=== PATIENT | male | born 1990 | race Caucasian/White ===

== ENCOUNTER 2018-10-25 16:14 | Emergency (ER) | payer OTHER ==
[2018-10-25 16:23] VITALS: BP 121/69; PULSE 89; RESP 18; TEMP 98.3
--- NOTE | 2018-10-25 16:52 | ED ---
General Adult HPI - General Chief complaint: ENT Stated complaint: sore throat Time Seen by Provider: 10/25/18 16:46 Source: patient, RN notes reviewed Mode of arrival: ambulatory Limitations: no limitations - History of Present Illness Initial comments: 28-year-old male with a past medical history of non-Hodgkin lymphoma presents for to the emergency department for foreign body sensation in right side of throat. Patient states this has been consistent for about 6 months. States it comes and goes. Denies any difficulty swallowing solids or liquids. Denies fevers or chills. Patient also pending of right-sided headaches that his been ongoing for about 6 months as well. Patient has not followed up with primary care. Denies any other neck pain. Denies sore throat.Patient has no other complaints at this time including shortness of breath, chest pain, abdominal pain, nausea or vomiting, headache, or visual changes. - Related Data Home Medications Medication Instructions Recorded Confirmed No Known Home Medications 10/25/18 10/25/18 Allergies Allergy/AdvReac Type Severity Reaction Status Date / Time No Known Allergies Allergy Verified 10/25/18 16:49 Review of Systems ROS Statement: Those systems with pertinent positive or pertinent negative responses have been documented in the HPI. ROS Other: All systems not noted in ROS Statement are negative. Past Medical History Past Medical History: No Reported History History of Any Multi-Drug Resistant Organisms: None Reported Past Surgical History: No Surgical Hx Reported Past Psychological History: No Psychological Hx Reported Smoking Status: Never smoker Past Alcohol Use History: None Reported Past Drug Use History: None Reported General Exam Limitations: no limitations General appearance: alert, in no apparent distress Head exam: Present: atraumatic, normocephalic, normal inspection Eye exam: Present: normal appearance, PERRL, EOMI. Absent: scleral icterus, conjunctival injection, periorbital swelling ENT exam: Present: normal exam, normal oropharynx (Uvula midline, no tonsillar exudates noted bilaterally, no evidence of perionsillar abscess.), mucous membranes moist, TM's normal bilaterally, normal external ear exam Neck exam: Present: normal inspection, full ROM. Absent: tenderness, meningismus, lymphadenopathy Respiratory exam: Present: normal lung sounds bilaterally. Absent: respiratory distress, wheezes, rales, rhonchi, stridor Cardiovascular Exam: Present: regular rate, normal rhythm, normal heart sounds. Absent: systolic murmur, diastolic murmur, rubs, gallop, clicks GI/Abdominal exam: Present: soft, normal bowel sounds. Absent: distended, tenderness, guarding, rebound, rigid Neurological exam: Present: alert, oriented X3, CN II-XII intact, normal gait, other Psychiatric exam: Present: normal affect, normal mood Course Vital Signs 10/25/18 16:19 Temperature 98.3 F Pulse Rate 89 Respiratory 18 Rate Blood Pressure 121/69 O2 Sat by Pulse 99 Oximetry Medical Decision Making - Medical Decision Making 28-year-old male presents to the emergency department for a chief complaint of sensation of foreign body in throat 6 months. States this comes and goes. Denies any pain or sensation of sore throat, just states he feels like he has something stuck in the right side of his throat. States he has also had right- sided headache, no visual changes. No difficulty walking. On exam uvula is midline, no tonsillar exudate noted bilaterally. No evidence of abscess. No respiratory distress. CT soft tissue neck shows nonspecific mild asymmetry of the tonsillar pillars, more full on the left. Otherwise unremarkable. On exam left tonsillar pillar appears to be symmetric, no evidence of abscess. CT brain shows no acute process. At this time I do not see an emergent cause for foreign body sensation. Unlikely to be fluid bolus as patient has had this for 6 months. At this time I recommended follow-up with primary care for possible ENT referral. Discussed returning here if he has any worsening symptoms. Disposition Clinical Impression: Sensation of foreign body, Chronic headache Disposition: HOME SELF-CARE Condition: Good Instructions (If sedation given, give patient instructions): Dysphagia (ED) Additional Instructions: Please follow up with primary care in 1-2 days. Please return here if you are having any worsening symptoms including difficulty swallowing. Is patient prescribed a controlled substance at d/c from ED?: No Referrals: Curtis Echols MD [REFERRING] - 1-2 days Luciana Rush DO [REFERRING] - 1-2 days Massiel Lincoln MD [STAFF PHYSICIAN] - 1-2 days Time of Disposition: 19:19
--- NOTE | 2018-10-25 18:14 | CT ---
EXAMINATION: CT brain wo con DATE AND TIME: 10/25/2018 5:47 PM CLINICAL INDICATION: PHH; Pain TECHNIQUE: Standard departmental protocol.; 1090.3; COMPARISON: MRI 05/13/2011 FINDINGS: The calvarium is intact. There is no intracranial hemorrhage. There is no intracranial mass or mass effect. No definite new intra-axial or extra-axial attenuation defect. The paranasal sinuses, middle ear cavities, and mastoid sinus air cells are clear. The orbits are unremarkable. IMPRESSION: NO ACUTE PROCESS.
--- NOTE | 2018-10-25 18:19 | CT ---
EXAMINATION TYPE: CT soft tissue neck wo con DATE OF EXAM: 10/25/2018 HISTORY: Headache, dizziness and fullness to right side of throat. COMPARISON: None CT DLP: 263.4 mGycm. Automated Exposure Control for Dose Reduction was Utilized. TECHNIQUE: Departmental protocol. FINDINGS: Airway: There is mild nonspecific fullness of the left tonsillar pillar. Otherwise, the airways unrem arkable. Salivary glands: No gross abnormality seen. Vascular structures: Negative. Osseous Structures: No incidental findings. Lymph nodes: No adenopathy. Other: Negative. IMPRESSION: Nonspecific mild asymmetry of the tonsillar pillars, being more full on the left.
== END 2018-10-25 19:31 | disposition home or self-care (01) ==
LOC: EC 16:14
DX: R09.89 Other specified symptoms and signs involving the circulatory and respiratory systems (principal); R51 Headache; J02.9 Acute pharyngitis, unspecified; Z85.72 Personal history of non-Hodgkin lymphomas
CPT/HCPCS: 70450; 70490; 99283

== ENCOUNTER → 2018-11-25 | Outpatient (CLI) | payer OTHER ==
--- NOTE | 2018-11-25 08:29 | CT ---
EXAMINATION TYPE: CT chest w con DATE OF EXAM: 11/25/2018 COMPARISON: CT chest abdomen and pelvis May 13, [address] PET CT April 16, 2012 and older studies HISTORY: Lymphoma diagnosed 2010 progress study. Automated Exposure Control for Dose Reduction was Utilized. TECHNIQUE: CT scan of the thorax is performed following with IV Contrast, patient injected with 100 mL of Isovue 300. FINDINGS: LUNGS: Scar tissue right upper to midlung centered right hilar region remains present . Slight right- sided volume loss is seen. No new nodules or masses. There is no pleural effusion or pneumothorax see n. Slight prominence of the right upper lung bronchus is stable. MEDIASTINUM: There are no new greater than 1 cm hilar or mediastinal lymph nodes. Residual anterior s uperior mediastinal heterogeneous mass with focus of calcification measuring 1.8 x 1.7 cm image 28 is not changed in size or appearance from most recent studies. No cardiomegaly or pericardial effusion is seen. OTHER: No additional significant abnormality is seen. IMPRESSION: No new or enlarging mass or adenopathy to suggest active neoplastic recurrence
== END | disposition home or self-care (01) ==
LOC: RADCTMAIN 07:21
PROVIDERS: ATTEND Internal Medicine Hematology & Oncology
DX: C81.98 Hodgkin lymphoma, unspecified, lymph nodes of multiple sites (principal)
CPT/HCPCS: 71260; Q9967